=== PATIENT | female | born 1950 | race Caucasian/White ===

== ENCOUNTER → 2018-02-15 | Outpatient (CLI) | payer OTHER ==
[2018-02-15] VITALS (10 sets, daily range): BP systolic 94–128; BP diastolic 57–80
[~2018-02-15] MED LIST: CALCIUM 500 +1 EAC5 PO; CARTIA XT180 M1 PO; ELIQUIS5 MG PO; KLOR-CON 1010 MEQ PO; LASIX 20 MG TAB20 MG PO; LOPRESSOR50 PO; PRADAXA150 MG PO; PROPAFENONE 15150 MG PO; VITAMIN D2000 UNIT PO; ZOCOR20 MG PO
--- NOTE | 2018-02-15 15:25 | EKG ---
[place] [address] ELECTROCARDIOGRAM REPORT Name: MIKEKARMA J Room: [facility]#: [id number] Admission: 02/15/18 Attend Phys: Flaco Peterson MD Discharge: Date of : 48 Report #: [id number] THIS REPORT FOR: //name// [facility] Test Date: 2018-02-15 Test Time: 11:28:05 Pat Name: KARMA MCKEON Department: Room: Gender: F Rn Building: : 1950 Requested By: Flaco Peterson Order Number: [id number] Reading MD: Joshua Guzman Measurements Intervals [place] Rate: 73 P: -40 [place]: 146 QRS: 22 QRSD: 94 T: 23 QT: 399 QTc: 440 Interpretive Statements Sinus rhythm Probable left atrial enlargement No previous ECG available for comparison Electronically Signed On 02-15-2018 15:24:48 CDT by Joshua Guzman [email or web address] <ELECTRONICALLY SIGNED> By: Joshua Guzman MD, [facility] 02/15/18 1524 1128 1128 Joshua Guzman MD, FACC /EPI
--- NOTE | 2018-02-16 15:46 | CARD ---
[address] [address] CARDIAC CATH REPORT Name: MIKEKARMA J Room: [facility]#: [id number] Admission: 02/15/18 Attend Phys: Flaco Peterson MD Discharge: Date of : 48 Report #: [id number] THIS REPORT FOR: //name// CC: Flaco Mcneill DATE OF SERVICE: 02/15/2018 INDICATIONS: The patient is a 67-year-old female who presented to the clinic as an add-on with urgent symptoms of dizziness and lightheadedness and was found to be in atrial flutter with a rapid ventricular response at a heart rate of 240 beats per minute. CONSENT: The risks and benefits of the procedure to the patient was described to the patient in lay terms. DESCRIPTION OF PROCEDURE: The patient had already been compliant with b.i.d. full dose Eliquis for thromboembolic prophylaxis and the patient had taken her medication already this morning including her Rythmol and Cardizem. The risks and benefits of the procedure were described to the patient in lay terms. The patient elects to proceed. Conscious sedation was administered under usual protocol with routine monitoring of heart rate, blood pressure, respiratory rate and oxygen saturations. Versed and fentanyl were readministered for conscious sedation. The patient received a total of 5 mg of IV Versed and 50 mcg of IV fentanyl. A DC cardioversion of 200 joules, biphasic was utilized to convert the patient from atrial flutter to sinus rhythm, 80 beats per minute with a first-degree AV block. The patient's hemodynamics remained stable and she was monitored per protocol postprocedurally and then discharged to home. IMPRESSION: 1. Atrial flutter. 2. Rapid ventricular response. 3. Hypotension, dizziness. 4. Successful direct current cardioversion. <ELECTRONICALLY SIGNED> By: Flaco Peterson MD, FACC 02/16/18 1546 1254 [id number] Peterson MD, FACC /nt
== END | disposition home or self-care (01) ==
LOC: M.CL 10:13
DX: I48.92 Unspecified atrial flutter (principal); I95.9 Hypotension, unspecified; Z79.899 Other long term (current) drug therapy; Z79.01 Long term (current) use of anticoagulants

== ENCOUNTER → 2018-03-30 | Outpatient (CLI) | payer OTHER ==
[2018-03-30] VITALS (8 sets, daily range): BP systolic 90–131; BP diastolic 53–90
[2018-03-30 08:30] LABS: CALCIUM 9.1 mg/dL (8.5-10.1); CREATININE 0.8 mg/dL (0.6-1.3); HEMATOCRIT 41.3 % (37.0-47.0); HEMOGLOBIN 13.5 gm/dL (12.0-15.0); MCH 30.4 pg (26.0-34.0); MCHC 32.8 g/dL (28.0-37.0); MCV 92.6 fL (80.0-100.0); MPV 8.8 fl. (7.2-11.1); POTASSIUM 4.2 mmol/L (3.5-5.1); RBC 4.46 mil/uL (4.20-5.00); RDW-CV 14.8 % (10.5-14.5); WBC 5.8 thou/uL (4.0-11.0)
[2018-03-30 08:33] LABS: APTT 28.5 Seconds (25.0-31.3); INR 1.1
[2018-03-30 08:35] LABS: ALBUMIN 3.8 g/dL (3.4-5.0); TOTAL BILIRUBIN 0.5 mg/dL (<0.1-1.0)
--- NOTE | 2018-03-30 16:41 | TEE ---
[place] [address] TRANSESOPHAGEAL ECHOCARDIOGRAM Name: KARMA MCKEON Room: [facility]#: [id number] Admission: 03/30/18 Attend Phys: Flaco Peterson, Discharge: Date of : 48 Date of Service: 03/30/18 1641 Report #: [id number] THIS REPORT FOR: //name// APPROVED REPORT Study performed: 03/30/2018 09:37:48 EXAM: Transesophageal Echocardiogram Patient Location: Out-Patient Status: routine BSA: 1.91 HR: 98 bpm BP: 128/90 mmHg Rhythm: Atrial Flutter Other Information Study Quality: Good Indications Atrial flutter Echo Enhancing Agent Indication: Rule out Shunt Agent(s) / Amount(s) Used: Agitated Saline 10 cc Procedure After obtaining informed consent, patient underwent transesophageal echo in the [employer]. Type of Sedation : Conscious Sedation Sedation was administered by Samantha Cano RN. Sedation start time: 938 Case end Time: 952 Sedation was achieved intravenously with: Versed (4) Fentanyl (50) Transesophageal probe was inserted and advanced into esophagus without difficulty by Flaco Peterson MD, FACC. Echo enhancement indication: R/O Septal defect. Echo enhancement agent administered: Agitated Saline The ZARA was performed without complications. Synchronized Cardioversion acheived with 200 Joules after 1 attempt(s). Throughout the procedure, the blood pressure, pulse oximetry, cardiac rhythm, and rate were monitored. The patient tolerated the procedure without adverse effects. Recovery from conscious sedation was uneventful [place] [address] TRANSESOPHAGEAL ECHOCARDIOGRAM Name: MIKEKARMA AYSHA Room: [facility]#: [id number] Admission: 03/30/18 Attend Phys: Flaco Peterson, Discharge: Date of : 48 Date of Service: 03/30/18 1641 Report #: [id number] Left Ventricle The left ventricle is normal size. There is normal LV segmental wall motion. There is normal left ventricular wall thickness. Left ventricular systolic function is normal. The left ventricular ejection fraction is within the normal range. No left ventricle thrombus noted on this study. LVEF is 60-65%. Right Ventricle The right ventricle is normal size. The right ventricular systolic function is normal. Atria The left atrium size is normal. No thrombus is visualized in the left atrium or appendage. Interatrial septum is intact without evidence of ASD or PFO. The right atrium size is normal. Aortic Valve The aortic valve is normal in structure. Trace aortic regurgitation. There is no aortic valvular stenosis. Mitral Valve The mitral valve is normal in structure. Mild to moderate mitral regurgitation. No evidence of mitral valve stenosis. Tricuspid Valve The tricuspid valve is normal in structure. Mild tricuspid regurgitation. Pulmonic Valve The pulmonary valve is normal in structure. There is no pulmonic valvular regurgitation. Great Vessels The aortic root is normal in size. Pericardium There is no pericardial effusion. <Conclusion> LVEF is 60-65%. There is normal LV segmental wall motion. No left ventricle thrombus noted on this study. The left atrium size is normal. No thrombus is visualized in the left [place] [address] TRANSESOPHAGEAL ECHOCARDIOGRAM Name: KARMA MCKEON Room: [facility]#: [id number] Admission: 03/30/18 Attend Phys: Flaco Peterson, Discharge: Date of : 48 Date of Service: 03/30/181640 Report #: [id number] Interatrial septum is intact without evidence of ASD or PFO. Successful ZARA guided cardioversion from aflutter to NSR <ELECTRONICALLY SIGNED> By: Flaco Peterson MD, [facility] 03/30/181640 40 40 Flaco Peterson MD, FACC /INF
--- NOTE | 2018-03-30 17:09 | EKG ---
[place] [address] ELECTROCARDIOGRAM REPORT Name: KARMA MCKEON Room: [facility]#: [id number] Admission: 03/30/18 Attend Phys: Flaco Peterson MD Discharge: Date of : 48 Report #: [id number] THIS REPORT FOR: //name// [facility] Test Date: 2018-03-30 Test Time: 08:44:47 Pat Name: KARMA MCKEON Department: Room: Gender: F [employer]: : 1950 Requested By: Flaco Peterson Order Number: [id number] Reading MD: Flaco Peterson Measurements Intervals [place] Rate: 101 P: 0 [place]: 190 QRS: 24 QRSD: 96 T: 68 QT: 378 QTc: [address] Interpretive [address]utter [address] depr, consider ischemia, inferior leads Borderline prolonged QT interval Baseline wander in lead(s) V6 Compared to ECG 02/15/2018 11:28:05 Possible ischemia now present Sinus rhythm no longer present Electronically Signed On 03-30-2018 17:09:16 CDT by Flaco Peterson [email or web address] <ELECTRONICALLY SIGNED> By: Flaco Peterson MD, [facility] 03/30/18 1709 0844 0844 Flaco Peterson MD, [facility] /EPI
--- NOTE | 2018-04-04 08:49 | CARD ---
[address] [address] CARDIAC CATH REPORT Name: KARMA MCKEON [id number] Admission: 03/30/18 Attend Phys: Flaco Peterson MD Discharge: Date of : 48 Report #: [id number] THIS REPORT FOR: //name// CC: Flaco Mcneill DATE OF SERVICE: 03/30/2018 INDICATIONS: Atrial flutter, preablation transesophageal echocardiogram. CONSENT: The risks and benefits of the procedure were described to the patient in lay terms. DESCRIPTION OF PROCEDURE: The patient was sedated per usual protocol with Versed and fentanyl. Please see record for dosing. Heart rate, oxygenation, blood pressure and respiratory rate were monitored per protocol. A transesophageal echocardiogram was performed and did not show evidence of an intracardiac thrombus. The patient was then given another milligram of Versed and sedation level was reassessed and she was cardioverted with 200 joules, biphasic from atrial flutter to sinus rhythm in the 70s. IMPRESSION: 1. Successful direct current cardioversion. 2. Atrial flutter. 3. No intracardiac thrombus noted on transesophageal echocardiogram prior to cardioversion. <ELECTRONICALLY SIGNED> By: Flaco Peterson MD, [facility] 04/04/18 0849 0958 [id number] Peterson MD, [facility] /nt
== END | disposition home or self-care (01) ==
LOC: M.CL 07:33
PROVIDERS: Internal Medicine Cardiovascular Disease
DX: I48.92 Unspecified atrial flutter (principal); Z79.01 Long term (current) use of anticoagulants; Z79.899 Other long term (current) drug therapy